=== PATIENT | male | born 1940 | race Caucasian/White ===

== ENCOUNTER 2017-05-23 14:23 | Emergency (ER) | payer MEDICARE ==
[~2017-05-23] VITALS: Ht 177.8 cm; Wt 106.8 kg
[~2017-05-23 14:23] MED LIST: ALLO100T PO; BUPR100T8 PO; CHOL400T32 PO; COU3T PO; EZET10TA26 PO; GABA-532 PO; GLIP10TA11 PO; LABE200T PO; LEVO200T8 PO; RAMI5CAP PO; SITA100T15 PO
[2017-05-23] MEDS ORDERED: ondansetron 4mg rapidly disintigrating tab PO ONE (16:55)
[2017-05-23] MEDS ORDERED: CefTRIAXone 1000mg IM Kit (w/lidocaine diluent) IM ONE (16:55)
[2017-05-23] MEDS ORDERED: tamsulosin 0.4mg capsule PO ONE (16:55)
[2017-05-23] MEDS ORDERED: DOXY100C43 PO (17:48)
[2017-05-23] MEDS ORDERED: CEPH250T PO (17:48)
[2017-05-23] MEDS ORDERED: FLO0.4C PO (17:48)
[2017-05-23] MEDS ORDERED: ONDA8TAB9 PO (17:48)
[2017-05-23 17:50] LABS: CLARITY,URINE CLEAR (Clear); COLOR,URINE YELLOW (Yellow); GLUCOSE, URINE NEGATIVE (Neg); KETONES,URINE NEGATIVE (Neg); LEUKOCYTE ESTERASE ,URINE NEGATIVE (Neg); NITRITES, URINE NEGATIVE (Neg); OCCULT BLOOD,URINE SMALL (Neg); PROTEIN,URINE >=300 mg/dl (Neg); UROBILINOGEN,URINE 0.2 E.U/dL (0.2-1.0)
[2017-05-23 18:07] LABS: UA COLLECTION TYPE FOLEY CATH
[2017-05-23 18:09] LABS: BACTERIA,URINE NONE SEEN /HPF (Neg); SQUAMOUS EPITHELIAL CELL,UR NONE SEEN /LPF (FEW); WBC,URINE 0-4 /HPF (0-4)
[2017-05-23 18:31] VITALS: BP 105/50
== END 2017-05-23 18:47 | disposition home or self-care (01) ==
LOC: ER 14:23
DX: L08.9 Local infection of the skin and subcutaneous tissue, unspecified (principal); R33.9 Retention of urine, unspecified; E11.22 Type 2 diabetes mellitus with diabetic chronic kidney disease; N18.9 Chronic kidney disease, unspecified; E11.42 Type 2 diabetes mellitus with diabetic polyneuropathy; Z79.899 Other long term (current) drug therapy; Z79.01 Long term (current) use of anticoagulants
CPT/HCPCS: 51702; 76870; 81001; 96372; 99285; A4315; J0696

== ENCOUNTER 2017-07-31 14:00 | Inpatient (IN) | payer MEDICARE ==
[2017-07-31] VITALS (7 sets, daily range): BP systolic 113–148; BP diastolic 64–76
[~2017-07-31] VITALS: Ht 604 cm; Wt 101.0 kg
[~2017-07-31 14:00] MED LIST changes: +ONDA8TAB9 PO
[2017-07-31] MEDS ORDERED: normal saline 1000ML IV soln IV ONE (14:20)
[2017-07-31 14:50] LABS: CLARITY,URINE SLIGHTLY CLOUDY (Clear); COLOR,URINE YELLOW (Yellow); GLUCOSE, URINE 100 mg/dl (Neg); KETONES,URINE NEGATIVE (Neg); LEUKOCYTE ESTERASE ,URINE NEGATIVE (Neg); NITRITES, URINE NEGATIVE (Neg); OCCULT BLOOD,URINE LARGE (Neg); PH,URINE 5.5 (4.8-8.0); PROTEIN,URINE 100 mg/dl (Neg); UROBILINOGEN,URINE 0.2 E.U/dL (0.2-1.0)
[2017-07-31 14:53] LABS: UA COLLECTION TYPE STRAIGHT CATH
[2017-07-31 14:56] LABS: AMORPHOUS URATES 2+; BACTERIA,URINE 1+ /HPF (Neg); RBC,URINE 50-100 /HPF (0-2); SQUAMOUS EPITHELIAL CELL,UR NONE SEEN /LPF (FEW)
[2017-07-31 15:07] LABS: BASOPHILS % (AUTO) 0 % (0-1); EOSINOPHILS % (AUTO) 0.1 % (0-6); LYMPHOCYTES # (AUTO) 0.3 X10'3 (1.1-4.8); LYMPHOCYTES % (AUTO) 1.5 % (21-51); MEAN CORPUSCULAR HEMOGLOBIN 30.8 PG (27.0-31.0); MEAN CORPUSCULAR HGB CONC 33.9 % (33.0-36.5); MEAN CORPUSCULAR VOLUME 90.8 FL (78-98); MEAN PLATELET VOLUME 7.9 FL (7.4-10.4); MONOCYTES # (AUTO) 1.1 X10'3 (0-0.9); NEUTROPHILS # (AUTO) 21.4 X10'3 (1.8-7.7); NEUTROPHILS % (AUTO) 93.4 % (42-75); PLATELET COUNT 239 X10'3 (140-440); RED BLOOD COUNT 2.02 X10'6 (4.70-6.10); WHITE BLOOD COUNT 22.9 X10'3 (4.5-11.0)
[2017-07-31 15:10] LABS: HEMOGLOBIN 6.2 g/dl (14.0-17.9)
[2017-07-31 15:11] LABS: HEMATOCRIT 18.3 % (42.0-52.0)
[2017-07-31 15:15] LABS: PROTHROMBIN TIME 49.4 SECONDS (9.0-12.0)
[2017-07-31 15:16] LABS: ALANINE AMINOTRANSFERASE 59 U/L (12-78); ALBUMIN 2.1 G/DL (3.4-5.0); ALBUMIN/GLOBULIN RATIO 0.4 (1.1-1.5); ALKALINE PHOSPHATASE 188 IU/L (46-116); ANION GAP 14 (8-16); ASPARTATE AMINO TRANSFERASE 82 U/L (10-37); BILIRUBIN,TOTAL 0.7 MG/DL (0.1-1.0); BLOOD UREA NITROGEN 112 MG/DL (7-18); BUN/CREATININE RATIO 16.9 (5.4-32.0); CALCIUM 8.1 MG/DL (8.5-10.1); CHLORIDE 83 MMOL/L (99-107); CREATININE 6.63 MG/DL (0.60-1.10); GLUCOSE 222 MG/DL (70-104); POTASSIUM 4.3 MMOL/L (3.5-5.1); TOTAL CARBON DIOXIDE 19.9 MMOL/L (24-32); TOTAL PROTEIN 6.8 G/DL (6.4-8.2); eGFR 8 ML/MIN
[2017-07-31] MEDS ORDERED: pantoprazole 40 MG vial IV ONE (15:20)
[2017-07-31] MEDS ORDERED: CefTRIAXone 2gm/D5W 50ml 50 ML IV ONE (15:20)
[2017-07-31 15:23] LABS: INR 5.1 INR
[2017-07-31 15:24] LABS: SODIUM 117 MMOL/L (135-145)
[2017-07-31] MEDS ORDERED: fentaNYL/PF 50MCG/1 ML 2ML syringe IV ONE (15:30)
[2017-07-31 15:33] LABS: TOTAL CELLS COUNTED 100
[2017-07-31 15:34] LABS: ANISOCYTOSIS 1+; LARGE PLATELETS FEW; PLATELET ESTIMATE NORMAL
[2017-07-31] MEDS ORDERED: mag hydrox/Alum hydrox/simeth 30ml oral suspension PO PRN (16:30)
[2017-07-31] MEDS ORDERED: magnesium Cl slow-release 64mg tablet PO PRN (16:30)
[2017-07-31] MEDS ORDERED: morphine 4 MG/ML inj SYRINge IV PRN ×2 (16:30)
[2017-07-31] MEDS ORDERED: magnesium/D5W IVPB 50 ML IV PRN (16:30)
[2017-07-31] MEDS ORDERED: dextrose 50%-water 50ml dispensing syringe IV PRN ×2 (16:30)
[2017-07-31] MEDS ORDERED: ondansetron/PF 4mg/2ml inj IV PRN (16:30)
[2017-07-31] MEDS ORDERED: HYDROcodone/acetaminophen 10/325mg tab PO PRN (16:30)
[2017-07-31] MEDS ORDERED: potassium Cl 20 mEq SR tablet PO PRN ×2 (16:30)
[2017-07-31] MEDS ORDERED: acetaminophen 325mg tablet PO PRN (16:30)
[2017-07-31] MEDS ORDERED: glucagon, human recombinant 1mg kit SUBCUT PRN (16:30)
[2017-07-31] MEDS ORDERED: MESSAGE TO PHARMACY PO ONE (16:30)
[2017-07-31] MEDS ORDERED: dextrose ORAL solution 15 GM/59 ML bottle PO PRN ×2 (16:30)
[2017-07-31] MEDS ORDERED: potassium Cl 40MEQ/NS 500ml 500 ML IV PRN ×2 (16:30)
[2017-07-31] MEDS ORDERED: magnesium hydroxide 30ml (MOM) UD suspension PO PRN (16:30)
[2017-07-31] MEDS ORDERED: magnesium 4gm in 100ml NS 100 ML IV PRN (16:30)
[2017-07-31 16:56] LABS: % IRON SATURATION 11 % (11-46); IRON 17 UG/DL (53-167); TOTAL IRON BINDING CAPACITY 153 UG/DL (259-388)
[2017-07-31 17:01] LABS: HEMOGLOBIN A1C 7.1 % (4.5-6.2)
[2017-07-31] MEDS ORDERED: CHOL2000 PO (17:06)
[2017-07-31] MEDS ORDERED: GLIP5TAB13 PO (17:08)
[2017-07-31] MEDS ORDERED: SODI650T29 PO (17:13)
[2017-07-31] MEDS: normal saline 1000ml 1,000 ML IV SCH ×2 (17:18→21:04)
[2017-07-31] MEDS ORDERED: furosemide 40mg/4ml inj IV ONE (17:20)
[2017-07-31 17:47] LABS: OCCULT BLOOD STOOL NEGATIVE (Neg)
[2017-07-31] MEDS: insulin glargine (Lantus) pen - multi-dose SQ SCH (21:29)
[2017-07-31] MEDS: piperacillin-tazo 2.25gm/50ml 50 ML IV SCH (21:30)
[2017-08-01 05:00] VITALS: BP_SYST 106; BP_SYST 114; BP_DIAS 56; BP_DIAS 60
[2017-08-01 05:53] LABS: BASOPHILS % (AUTO) 0 % (0-1); EOSINOPHILS % (AUTO) 0 % (0-6); HEMOGLOBIN 7.1 g/dl (14.0-17.9); LYMPHOCYTES # (AUTO) 0.5 X10'3 (1.1-4.8); LYMPHOCYTES % (AUTO) 2.3 % (21-51); MEAN CORPUSCULAR HEMOGLOBIN 30.7 PG (27.0-31.0); MEAN CORPUSCULAR HGB CONC 34.9 % (33.0-36.5); MEAN PLATELET VOLUME 8.1 FL (7.4-10.4); MONOCYTES # (AUTO) 1.1 X10'3 (0-0.9); NEUTROPHILS # (AUTO) 19.8 X10'3 (1.8-7.7); NEUTROPHILS % (AUTO) 92.7 % (42-75); PLATELET COUNT 240 X10'3 (140-440); RED BLOOD COUNT 2.33 X10'6 (4.70-6.10); RED CELL DISTRIBUTION WIDTH 15.8 % (11.5-14.5); WHITE BLOOD COUNT 21.3 X10'3 (4.5-11.0)
[2017-08-01 06:01] LABS: ALBUMIN 1.9 G/DL (3.4-5.0); ANION GAP 18 (8-16); BLOOD UREA NITROGEN 108 MG/DL (7-18); BUN/CREATININE RATIO 16.5 (5.4-32.0); CALCIUM 7.7 MG/DL (8.5-10.1); CHLORIDE 86 MMOL/L (99-107); CREATININE 6.55 MG/DL (0.60-1.10); GLUCOSE 146 MG/DL (70-104); POTASSIUM 4.3 MMOL/L (3.5-5.1); TOTAL CARBON DIOXIDE 16.1 MMOL/L (24-32); eGFR 8 ML/MIN
[2017-08-01 06:17] LABS: HEMATOCRIT 20.5 % (42.0-52.0)
[2017-08-01 06:41] LABS: SODIUM 120 MMOL/L (135-145)
[2017-08-01] MEDS: K and/or MAG REPLACEMENT MC SCH (08:00)
[2017-08-01] MEDS: piperacillin-tazo 2.25gm/50ml 50 ML IV SCH ×2 (09:28→19:07)
[2017-08-01] MEDS: insulin Lispro (HumaLOG) vial - multi-dose SQ SCH ×3 (09:31→19:47)
[2017-08-01] MEDS: acetaminophen 325mg tablet PO PRN (09:33)
[2017-08-01 10:00] VITALS: BP 114/56
[2017-08-01 10:14] LABS: ANISOCYTOSIS 1+; PLATELET ESTIMATE NORMAL; TOTAL CELLS COUNTED 100
[2017-08-01 10:16] LABS: TOXIC GRANULATION 1+
[2017-08-01 10:17] LABS: BURR CELLS FEW; POLYCHROMASIA FEW; SCHISTOCYTES FEW
[2017-08-01] MEDS: sodium bicarbonate 650mg tablet PO SCH ×2 (14:36→19:08)
[2017-08-01] MEDS: normal saline 1000ml 1,000 ML IV SCH (19:07)
[2017-08-01] MEDS: lactobacillus rhamnosus 10,000 MMU CELLS/CAPSULE PO SCH (19:08)
[2017-08-01] MEDS: insulin glargine (Lantus) pen - multi-dose SQ SCH (21:20)
[2017-08-01 22:00] VITALS: BP 104/58
[2017-08-02] MEDS: HYDROcodone/acetaminophen 5mg/325mg tablet PO PRN ×2 (05:09→11:29)
[2017-08-02 06:15] VITALS: BP 124/63
[2017-08-02 07:18] LABS: BASOPHILS % (AUTO) 0 % (0-1); EOSINOPHILS # (AUTO) 0.2 X10'3 (0-0.9); EOSINOPHILS % (AUTO) 1.2 % (0-6); HEMOGLOBIN 7.2 g/dl (14.0-17.9); LYMPHOCYTES # (AUTO) 0.4 X10'3 (1.1-4.8); LYMPHOCYTES % (AUTO) 1.8 % (21-51); MEAN CORPUSCULAR HEMOGLOBIN 30.2 PG (27.0-31.0); MEAN CORPUSCULAR HGB CONC 33.3 % (33.0-36.5); MEAN CORPUSCULAR VOLUME 90.8 FL (78-98); MEAN PLATELET VOLUME 8.4 FL (7.4-10.4); MONOCYTES # (AUTO) 0.9 X10'3 (0-0.9); MONOCYTES % (AUTO) 4.7 % (2-12); NEUTROPHILS # (AUTO) 18.5 X10'3 (1.8-7.7); NEUTROPHILS % (AUTO) 92.3 % (42-75); PLATELET COUNT 253 X10'3 (140-440); RED BLOOD COUNT 2.39 X10'6 (4.70-6.10); RED CELL DISTRIBUTION WIDTH 14.9 % (11.5-14.5)
[2017-08-02 07:32] LABS: HEMATOCRIT 21.7 % (42.0-52.0)
[2017-08-02 07:35] LABS: ALBUMIN 1.6 G/DL (3.4-5.0); ANION GAP 18 (8-16); BLOOD UREA NITROGEN 117 MG/DL (7-18); BUN/CREATININE RATIO 17.1 (5.4-32.0); CALCIUM 7.7 MG/DL (8.5-10.1); CHLORIDE 90 MMOL/L (99-107); CREATININE 6.86 MG/DL (0.60-1.10); GLUCOSE 71 MG/DL (70-104); MAGNESIUM 2.2 MG/DL (1.5-2.4); POTASSIUM 4.2 MMOL/L (3.5-5.1); SODIUM 124 MMOL/L (135-145); TOTAL CARBON DIOXIDE 16.5 MMOL/L (24-32); eGFR 8 ML/MIN
[2017-08-02] MEDS: K and/or MAG REPLACEMENT MC SCH (08:00)
[2017-08-02] MEDS ORDERED: epoetin 20,000 units/ml inj SQ ONE (08:15)
[2017-08-02] MEDS: insulin Lispro (HumaLOG) vial - multi-dose SQ SCH ×3 (09:31→19:39)
[2017-08-02] MEDS: lactobacillus rhamnosus 10,000 MMU CELLS/CAPSULE PO SCH ×2 (09:33→19:39)
[2017-08-02] MEDS: sodium bicarbonate 650mg tablet PO SCH (09:33)
[2017-08-02] MEDS: piperacillin-tazo 2.25gm/50ml 50 ML IV SCH ×2 (09:33→19:40)
[2017-08-02 10:00] VITALS: BP 92/48
[2017-08-02] MEDS: normal saline 1000ml 1,000 ML IV SCH (11:47)
[2017-08-02] MEDS ORDERED: morphine 2 MG/ML inj. syringe IV PRN (17:05)
[2017-08-02] MEDS: insulin glargine (Lantus) pen - multi-dose SQ SCH (21:01)
[2017-08-02 22:00] VITALS: BP 90/54
[2017-08-03 06:00] VITALS: BP 103/56
[2017-08-03 06:10] LABS: BASOPHILS % (AUTO) 0 % (0-1); EOSINOPHILS # (AUTO) 0.7 X10'3 (0-0.9); EOSINOPHILS % (AUTO) 4.3 % (0-6); LYMPHOCYTES # (AUTO) 0.6 X10'3 (1.1-4.8); LYMPHOCYTES % (AUTO) 3.4 % (21-51); MEAN CORPUSCULAR HEMOGLOBIN 30.6 PG (27.0-31.0); MEAN CORPUSCULAR HGB CONC 34.1 % (33.0-36.5); MEAN CORPUSCULAR VOLUME 89.8 FL (78-98); MEAN PLATELET VOLUME 7.9 FL (7.4-10.4); MONOCYTES # (AUTO) 0.9 X10'3 (0-0.9); MONOCYTES % (AUTO) 5.2 % (2-12); NEUTROPHILS % (AUTO) 87.1 % (42-75); PLATELET COUNT 258 X10'3 (140-440); RED BLOOD COUNT 2.27 X10'6 (4.70-6.10); RED CELL DISTRIBUTION WIDTH 16.1 % (11.5-14.5); WHITE BLOOD COUNT 17.2 X10'3 (4.5-11.0)
[2017-08-03 06:21] LABS: ALBUMIN 1.5 G/DL (3.4-5.0); ANION GAP 16 (8-16); BLOOD UREA NITROGEN 130 MG/DL (7-18); BUN/CREATININE RATIO 17.1 (5.4-32.0); CALCIUM 7.5 MG/DL (8.5-10.1); CHLORIDE 91 MMOL/L (99-107); CREATININE 7.62 MG/DL (0.60-1.10); GLUCOSE 55 MG/DL (70-104); MAGNESIUM 2.3 MG/DL (1.5-2.4); POTASSIUM 4.2 MMOL/L (3.5-5.1); SODIUM 125 MMOL/L (135-145); TOTAL CARBON DIOXIDE 17.9 MMOL/L (24-32); eGFR 7 ML/MIN
[2017-08-03 06:55] LABS: HEMATOCRIT 20.4 % (42.0-52.0)
[2017-08-03 10:00] VITALS: BP 102/61
[2017-08-03] MEDS: K and/or MAG REPLACEMENT MC SCH (10:00)
[2017-08-03] MEDS: piperacillin-tazo 2.25gm/50ml 50 ML IV SCH ×2 (10:05→19:05)
[2017-08-03] MEDS: lactobacillus rhamnosus 10,000 MMU CELLS/CAPSULE PO SCH ×2 (10:05→19:03)
[2017-08-03] MEDS ORDERED: benzocaine/menthol oral lozeng 1 EACH BOX MM PRN (17:35)
[2017-08-03 18:00] VITALS: BP 130/61
[2017-08-03] MEDS: insulin Lispro (HumaLOG) vial - multi-dose SQ SCH (19:05)
[2017-08-03] MEDS: insulin glargine (Lantus) pen - multi-dose SQ SCH (20:51)
[2017-08-03 22:00] VITALS: BP 113/56
[2017-08-04 05:55] LABS: BASOPHILS % (AUTO) 0 % (0-1); EOSINOPHILS % (AUTO) 5.7 % (0-6); HEMATOCRIT 22.2 % (42.0-52.0); HEMOGLOBIN 7.4 g/dl (14.0-17.9); LYMPHOCYTES # (AUTO) 0.6 X10'3 (1.1-4.8); LYMPHOCYTES % (AUTO) 3.2 % (21-51); MEAN CORPUSCULAR HEMOGLOBIN 30.2 PG (27.0-31.0); MEAN CORPUSCULAR HGB CONC 33.4 % (33.0-36.5); MEAN CORPUSCULAR VOLUME 90.5 FL (78-98); MEAN PLATELET VOLUME 7.5 FL (7.4-10.4); MONOCYTES # (AUTO) 0.7 X10'3 (0-0.9); NEUTROPHILS # (AUTO) 15.3 X10'3 (1.8-7.7); NEUTROPHILS % (AUTO) 87.1 % (42-75); PLATELET COUNT 331 X10'3 (140-440); RED BLOOD COUNT 2.46 X10'6 (4.70-6.10); RED CELL DISTRIBUTION WIDTH 16.5 % (11.5-14.5); WHITE BLOOD COUNT 17.5 X10'3 (4.5-11.0)
[2017-08-04 06:00] VITALS: BP 117/57
[2017-08-04 06:11] LABS: ALBUMIN 1.5 G/DL (3.4-5.0); ANION GAP 18 (8-16); BLOOD UREA NITROGEN 138 MG/DL (7-18); BUN/CREATININE RATIO 17.9 (5.4-32.0); CALCIUM 7.6 MG/DL (8.5-10.1); CHLORIDE 91 MMOL/L (99-107); CREATININE 7.72 MG/DL (0.60-1.10); GLUCOSE 172 MG/DL (70-104); MAGNESIUM 2.4 MG/DL (1.5-2.4); POTASSIUM 4.9 MMOL/L (3.5-5.1); SODIUM 127 MMOL/L (135-145); TOTAL CARBON DIOXIDE 17.6 MMOL/L (24-32); eGFR 7 ML/MIN
[2017-08-04] MEDS: K and/or MAG REPLACEMENT MC SCH (08:00)
[2017-08-04] MEDS: piperacillin-tazo 2.25gm/50ml 50 ML IV SCH ×2 (08:24→20:14)
[2017-08-04] MEDS: acetaminophen 325mg tablet PO PRN (08:24)
[2017-08-04] MEDS: lactobacillus rhamnosus 10,000 MMU CELLS/CAPSULE PO SCH ×2 (08:24→20:14)
[2017-08-04] MEDS: insulin Lispro (HumaLOG) vial - multi-dose SQ SCH ×2 (08:38→21:44)
[2017-08-04 10:00] VITALS: BP 128/56
[2017-08-04] MEDS: HYDROcodone/acetaminophen 5mg/325mg tablet PO PRN (13:57)
[2017-08-04 18:00] VITALS: BP 114/62
[2017-08-04] MEDS: insulin glargine (Lantus) pen - multi-dose SQ SCH (21:42)
[2017-08-04 22:00] VITALS: BP 122/60
[2017-08-05 05:47] LABS: BASOPHILS % (AUTO) 0.2 % (0-1); EOSINOPHILS # (AUTO) 1.3 X10'3 (0-0.9); HEMATOCRIT 23.1 % (42.0-52.0); HEMOGLOBIN 7.7 g/dl (14.0-17.9); LYMPHOCYTES # (AUTO) 0.7 X10'3 (1.1-4.8); LYMPHOCYTES % (AUTO) 3.8 % (21-51); MEAN CORPUSCULAR HEMOGLOBIN 30.5 PG (27.0-31.0); MEAN CORPUSCULAR HGB CONC 33.5 % (33.0-36.5); MEAN CORPUSCULAR VOLUME 91.1 FL (78-98); MEAN PLATELET VOLUME 7.5 FL (7.4-10.4); MONOCYTES # (AUTO) 0.8 X10'3 (0-0.9); MONOCYTES % (AUTO) 4.2 % (2-12); NEUTROPHILS # (AUTO) 15.5 X10'3 (1.8-7.7); NEUTROPHILS % (AUTO) 84.8 % (42-75); PLATELET COUNT 378 X10'3 (140-440); RED BLOOD COUNT 2.53 X10'6 (4.70-6.10); RED CELL DISTRIBUTION WIDTH 16.4 % (11.5-14.5); WHITE BLOOD COUNT 18.2 X10'3 (4.5-11.0)
[2017-08-05 05:57] LABS: ALBUMIN 1.5 G/DL (3.4-5.0); ANION GAP 17 (8-16); BLOOD UREA NITROGEN 149 MG/DL (7-18); BUN/CREATININE RATIO 18.9 (5.4-32.0); CALCIUM 8.4 MG/DL (8.5-10.1); CHLORIDE 94 MMOL/L (99-107); CREATININE 7.88 MG/DL (0.60-1.10); GLUCOSE 196 MG/DL (70-104); MAGNESIUM 2.7 MG/DL (1.5-2.4); POTASSIUM 4.6 MMOL/L (3.5-5.1); SODIUM 128 MMOL/L (135-145); TOTAL CARBON DIOXIDE 17.5 MMOL/L (24-32); eGFR 7 ML/MIN
[2017-08-05 06:00] VITALS: BP 136/69
[2017-08-05] MEDS: K and/or MAG REPLACEMENT MC SCH (08:00)
[2017-08-05] MEDS: lactobacillus rhamnosus 10,000 MMU CELLS/CAPSULE PO SCH (08:38)
[2017-08-05] MEDS: piperacillin-tazo 2.25gm/50ml 50 ML IV SCH (08:38)
[2017-08-05] MEDS: insulin Lispro (HumaLOG) vial - multi-dose SQ SCH (08:39)
[2017-08-05] MEDS: HYDROcodone/acetaminophen 5mg/325mg tablet PO PRN (09:36)
[2017-08-05 12:06] VITALS: BP 140/68
== END 2017-08-05 17:00 | DRG 871 ==
LOC: ER 14:00 → ED HOLD 16:28 → ORTHO 4S 20:30
PROVIDERS: ADMIT Internal Medicine; ATTEND Family Medicine
PROC: 30233N1 Transfusion of Nonautologous Red Blood Cells into Peripheral Vein, Percutaneous Approach (ICD-10-PCS; principal; 2017-07-31)
DX: A41.9 Sepsis, unspecified organism (principal); N18.6 End stage renal disease; L03.116 Cellulitis of left lower limb; N39.0 Urinary tract infection, site not specified; L03.115 Cellulitis of right lower limb; E87.1 Hypo-osmolality and hyponatremia; I12.0 Hypertensive chronic kidney disease with stage 5 chronic kidney disease or end stage renal disease; N17.9 Acute kidney failure, unspecified; D63.8 Anemia in other chronic diseases classified elsewhere; E03.9 Hypothyroidism, unspecified; R33.9 Retention of urine, unspecified; E11.22 Type 2 diabetes mellitus with diabetic chronic kidney disease; Z51.5 Encounter for palliative care; E11.42 Type 2 diabetes mellitus with diabetic polyneuropathy; G89.4 Chronic pain syndrome; I25.10 Atherosclerotic heart disease of native coronary artery without angina pectoris; Z53.29 Procedure and treatment not carried out because of patient's decision for other reasons; I25.2 Old myocardial infarction; Z79.899 Other long term (current) drug therapy; Z79.01 Long term (current) use of anticoagulants; Z79.84 Long term (current) use of oral hypoglycemic drugs
CPT/HCPCS: 36415; 71045; 80048; 80053; 81001; 82272; 82948; 83036; 83540; 83550; 83605; 83735; 84145; 84443; 85025; 85610; 86885; 86900; 86901; 86920; 87040; 87070; 87088; 93005; 96365; 96375; 97110; 97116; 97162; 97530; 99285; A4315; A4353; A6209; A6212; A6213; A6253; A6446; A6449; C9113; J0696; J0885; J1815; J1940; J2270; J2543; J3010; J7030; P9016

== ENCOUNTER 2017-08-29 11:25 | Inpatient (IN) | payer MEDICARE ==
[~2017-08-29] VITALS: Ht 177.8 cm; Wt 101.0 kg
[~2017-08-29 11:25] MED LIST changes: +CHOL2000 PO; -CHOL400T32 PO; -GLIP10TA11 PO; +GLIP5TAB13 PO; -ONDA8TAB9 PO; +SODI650T29 PO
[2017-08-29 13:14] LABS: BASOPHILS % (AUTO) 0 % (0-1); EOSINOPHILS # (AUTO) 0.4 X10'3 (0-0.9); EOSINOPHILS % (AUTO) 1.9 % (0-6); HEMATOCRIT 28.1 % (42.0-52.0); HEMOGLOBIN 9.3 g/dl (14.0-17.9); LYMPHOCYTES # (AUTO) 1.1 X10'3 (1.1-4.8); LYMPHOCYTES % (AUTO) 5.5 % (21-51); MEAN CORPUSCULAR HEMOGLOBIN 29.3 PG (27.0-31.0); MEAN CORPUSCULAR VOLUME 88.8 FL (78-98); MEAN PLATELET VOLUME 9.2 FL (7.4-10.4); MONOCYTES # (AUTO) 0.9 X10'3 (0-0.9); MONOCYTES % (AUTO) 4.6 % (2-12); NEUTROPHILS # (AUTO) 17.6 X10'3 (1.8-7.7); PLATELET COUNT 129 X10'3 (140-440); RED BLOOD COUNT 3.16 X10'6 (4.70-6.10); RED CELL DISTRIBUTION WIDTH 17.1 % (11.5-14.5)
[2017-08-29 13:15] LABS: CLARITY,URINE CLEAR (Clear); COLOR,URINE YELLOW (Yellow); GLUCOSE, URINE 100 mg/dl (Neg); KETONES,URINE NEGATIVE (Neg); LEUKOCYTE ESTERASE ,URINE NEGATIVE (Neg); NITRITES, URINE NEGATIVE (Neg); OCCULT BLOOD,URINE LARGE (Neg); PROTEIN,URINE 100 mg/dl (Neg); UROBILINOGEN,URINE 0.2 E.U/dL (0.2-1.0)
[2017-08-29 13:20] LABS: UA COLLECTION TYPE FOLEY CATH
[2017-08-29 13:24] LABS: INR 3.4 INR; PARTIAL THROMBOPLASTIN TIME 47 SECONDS (22-32); PROTHROMBIN TIME 33.5 SECONDS (9.0-12.0)
[2017-08-29 13:30] LABS: ALANINE AMINOTRANSFERASE 46 U/L (12-78); ALBUMIN 1.5 G/DL (3.4-5.0); ALBUMIN/GLOBULIN RATIO 0.3 (1.1-1.5); ALKALINE PHOSPHATASE 181 IU/L (46-116); ANION GAP 10 (8-16); ASPARTATE AMINO TRANSFERASE 37 U/L (10-37); BILIRUBIN,TOTAL 0.4 MG/DL (0.1-1.0); BLOOD UREA NITROGEN 80 MG/DL (7-18); BUN/CREATININE RATIO 15.4 (5.4-32.0); CALCIUM 7.6 MG/DL (8.5-10.1); CHLORIDE 87 MMOL/L (99-107); CREATININE 5.21 MG/DL (0.60-1.10); GLUCOSE 266 MG/DL (70-104); POTASSIUM 3.5 MMOL/L (3.5-5.1); SODIUM 127 MMOL/L (135-145); TOTAL CARBON DIOXIDE 30.2 MMOL/L (24-32); TOTAL PROTEIN 6.4 G/DL (6.4-8.2); eGFR 11 ML/MIN
[2017-08-29 13:40] LABS: BACTERIA,URINE 2+ /HPF (Neg); SQUAMOUS EPITHELIAL CELL,UR FEW /LPF (FEW)
[2017-08-29 14:00] LABS: ANISOCYTOSIS 1+; PLATELET ESTIMATE DECREASED; TOTAL CELLS COUNTED 100
[2017-08-29] MEDS ORDERED: CefTRIAXone 2gm/D5W 50ml 50 ML IV ONE (14:05)
[2017-08-29] MEDS ORDERED: cefTAZidime inj 2 GM in normal saline 100ml IV soln 100 ML IV STA (14:40)
[2017-08-29] MEDS ORDERED: ondansetron/PF 4mg/2ml inj IV PRN (15:00)
[2017-08-29] MEDS ORDERED: diphenhydrAMINE 25mg capsule PO PRN (15:00)
[2017-08-29] MEDS ORDERED: HYDROmorphone 1 mg/ml syringe IV PRN (15:00)
[2017-08-29] MEDS ORDERED: HYDROcodone/acetaminophen 5mg/325mg tablet PO PRN (15:00)
[2017-08-29] MEDS ORDERED: acetaminophen 325mg tablet PO PRN (15:00)
[2017-08-29] MEDS ORDERED: bisacodyl 10mg suppository rectal RC PRN (15:00)
[2017-08-29] MEDS ORDERED: dextrose 50%-water 50ml dispensing syringe IV PRN ×2 (15:05)
[2017-08-29] MEDS ORDERED: dextrose ORAL solution 15 GM/59 ML bottle PO PRN ×2 (15:05)
[2017-08-29] MEDS ORDERED: MESSAGE TO PHARMACY PO ONE (15:05)
[2017-08-29] MEDS ORDERED: glucagon, human recombinant 1mg kit SUBCUT PRN (15:05)
[2017-08-29 15:37] LABS: VANCOMYCIN,RANDOM 4.9 UG/ML
[2017-08-29 15:55] VITALS: BP 104/64
[2017-08-29 18:00] VITALS: BP 111/66
[2017-08-29] MEDS: docusate sod 100mg capsule PO SCH (20:20)
[2017-08-29] MEDS: insulin Lispro (HumaLOG) vial - multi-dose SQ SCH (20:23)
[2017-08-29] MEDS ORDERED: temazepam 15mg capsule PO PRN (21:00)
[2017-08-29] MEDS: insulin glargine (Lantus) pen - multi-dose SQ SCH (21:59)
[2017-08-29 22:00] VITALS: BP 115/59
[2017-08-30] VITALS (11 sets, daily range): BP systolic 100–143; BP diastolic 63–80
[2017-08-30 06:07] LABS: BASOPHILS % (AUTO) 0 % (0-1); EOSINOPHILS # (AUTO) 0.6 X10'3 (0-0.9); EOSINOPHILS % (AUTO) 3.4 % (0-6); HEMATOCRIT 27.1 % (42.0-52.0); HEMOGLOBIN 8.8 g/dl (14.0-17.9); LYMPHOCYTES # (AUTO) 0.7 X10'3 (1.1-4.8); LYMPHOCYTES % (AUTO) 3.8 % (21-51); MEAN CORPUSCULAR HGB CONC 32.7 % (33.0-36.5); MEAN CORPUSCULAR VOLUME 88.7 FL (78-98); MEAN PLATELET VOLUME 8.9 FL (7.4-10.4); MONOCYTES # (AUTO) 0.8 X10'3 (0-0.9); MONOCYTES % (AUTO) 4.3 % (2-12); NEUTROPHILS # (AUTO) 16.7 X10'3 (1.8-7.7); NEUTROPHILS % (AUTO) 88.5 % (42-75); PLATELET COUNT 143 X10'3 (140-440); RED BLOOD COUNT 3.05 X10'6 (4.70-6.10); WHITE BLOOD COUNT 18.9 X10'3 (4.5-11.0)
[2017-08-30 06:27] LABS: ALBUMIN 1.5 G/DL (3.4-5.0); ANION GAP 12 (8-16); BLOOD UREA NITROGEN 88 MG/DL (7-18); BUN/CREATININE RATIO 15.1 (5.4-32.0); CALCIUM 7.4 MG/DL (8.5-10.1); CHLORIDE 89 MMOL/L (99-107); CREATININE 5.82 MG/DL (0.60-1.10); GLUCOSE 168 MG/DL (70-104); MAGNESIUM 1.8 MG/DL (1.5-2.4); PHOSPHORUS 6.4 MG/DL (2.3-4.5); POTASSIUM 3.6 MMOL/L (3.5-5.1); SODIUM 128 MMOL/L (135-145); TOTAL CARBON DIOXIDE 27.1 MMOL/L (24-32); eGFR 10 ML/MIN
[2017-08-30 06:39] LABS: ANISOCYTOSIS 1+; PLATELET ESTIMATE NORMAL; POLYCHROMASIA FEW; TOTAL CELLS COUNTED 100
[2017-08-30] MEDS ORDERED: vancomycin/NS 1 GM ADD-VANTAGE 250 ML IV ONE (07:10)
[2017-08-30] MEDS: docusate sod 100mg capsule PO SCH ×2 (07:41→22:30)
[2017-08-30] MEDS ORDERED: heparin 1,000 units/ml 10ml inj IV ONE (08:00)
[2017-08-30] MEDS ORDERED: heparin 1,000unit/ml 10ml vial 10 ML IV ONE (08:00)
[2017-08-30] MEDS ORDERED: albumin (human) 25% 100ml IV 100 ML IV PRN (08:00)
[2017-08-30] MEDS ORDERED: heparin 1,000 units/ml 10ml inj HE ONE ×2 (08:00)
[2017-08-30 09:12] LABS: INR 3.8 INR; PROTHROMBIN TIME 37.5 SECONDS (9.0-12.0)
[2017-08-30] MEDS ORDERED: fentaNYL/PF 50MCG/1 ML 2ML syringe IV PRN (10:05)
[2017-08-30] MEDS ORDERED: heparin 1,000 units/ml 10ml inj ICATH ONE (10:05)
[2017-08-30] MEDS ORDERED: midazolam 2 mg/2 ml injection IV PRN (10:05)
[2017-08-30] MEDS: insulin Lispro (HumaLOG) vial - multi-dose SQ SCH ×3 (10:07→21:05)
[2017-08-30] MEDS ORDERED: normal saline 1000ml 1,000 ML IV SCH (10:10)
[2017-08-30] MEDS ORDERED: fentaNYL/PF 50MCG/1 ML 2ML syringe ONE (10:31)
[2017-08-30] MEDS ORDERED: heparin 1,000unit/ml 10ml vial 10 ML ONE (10:31)
[2017-08-30] MEDS ORDERED: midazolam 2 mg/2 ml injection ONE (10:31)
[2017-08-30] MEDS ORDERED: vancomycin/NS 1 GM ADD-VANTAGE 250 ML X 1 DOSE IV PRN (10:55)
[2017-08-30] MEDS ORDERED: LIDOcaine 1%/PF 5ML 10 MG/ML VIAL ONE (11:02)
[2017-08-30] MEDS: glipizide 5mg tablet PO SCH ×2 (13:00→22:29)
[2017-08-30] MEDS ORDERED: warfarin 3mg tablet PO SCH (21:00)
[2017-08-30] MEDS: labetalol 100mg tablet PO SCH (22:29)
[2017-08-30] MEDS: sodium bicarbonate 650mg tablet PO SCH (22:31)
[2017-08-30] MEDS: insulin glargine (Lantus) pen - multi-dose SQ SCH (22:37)
[2017-08-31] MEDS ORDERED: VANCOMYCIN LEVEL IV SCH ×2 (03:00→04:00)
[2017-08-31 05:45] LABS: BASOPHILS % (AUTO) 0.1 % (0-1); EOSINOPHILS # (AUTO) 0.6 X10'3 (0-0.9); EOSINOPHILS % (AUTO) 3.3 % (0-6); HEMOGLOBIN 9.2 g/dl (14.0-17.9); LYMPHOCYTES % (AUTO) 5.4 % (21-51); MEAN CORPUSCULAR HGB CONC 32.9 % (33.0-36.5); MEAN CORPUSCULAR VOLUME 88.2 FL (78-98); MEAN PLATELET VOLUME 9.2 FL (7.4-10.4); MONOCYTES # (AUTO) 0.8 X10'3 (0-0.9); MONOCYTES % (AUTO) 4.3 % (2-12); NEUTROPHILS # (AUTO) 15.8 X10'3 (1.8-7.7); NEUTROPHILS % (AUTO) 86.9 % (42-75); PLATELET COUNT 128 X10'3 (140-440); RED BLOOD COUNT 3.18 X10'6 (4.70-6.10); RED CELL DISTRIBUTION WIDTH 16.9 % (11.5-14.5); WHITE BLOOD COUNT 18.1 X10'3 (4.5-11.0)
[2017-08-31 06:00] VITALS: BP 127/77
[2017-08-31 06:06] LABS: PROTHROMBIN TIME 40.2 SECONDS (9.0-12.0)
[2017-08-31 06:17] LABS: INR 4.1 INR
[2017-08-31 06:18] LABS: ALBUMIN 1.5 G/DL (3.4-5.0); ANION GAP 11 (8-16); BLOOD UREA NITROGEN 56 MG/DL (7-18); BUN/CREATININE RATIO 13.9 (5.4-32.0); CALCIUM 7.8 MG/DL (8.5-10.1); CHLORIDE 95 MMOL/L (99-107); CREATININE 4.02 MG/DL (0.60-1.10); GLUCOSE 159 MG/DL (70-104); MAGNESIUM 1.9 MG/DL (1.5-2.4); PHOSPHORUS 5.2 MG/DL (2.3-4.5); POTASSIUM 3.6 MMOL/L (3.5-5.1); SODIUM 133 MMOL/L (135-145); TOTAL CARBON DIOXIDE 26.7 MMOL/L (24-32); eGFR 15 ML/MIN
[2017-08-31] MEDS: levoTHYROXINE 100mcg tablet PO SCH (07:20)
[2017-08-31] MEDS: docusate sod 100mg capsule PO SCH ×2 (08:00→20:45)
[2017-08-31 10:00] VITALS: BP 131/76
[2017-08-31] MEDS: glipizide 5mg tablet PO SCH ×2 (10:07→13:32)
[2017-08-31] MEDS: gabapentin 300mg capsule PO SCH (10:08)
[2017-08-31] MEDS: labetalol 100mg tablet PO SCH ×2 (10:08→20:45)
[2017-08-31] MEDS: sodium bicarbonate 650mg tablet PO SCH ×2 (10:08→20:45)
[2017-08-31] MEDS: lisinopril 20mg tablet PO SCH (10:09)
[2017-08-31] MEDS: ezetimibe 10mg tablet PO SCH (10:09)
[2017-08-31] MEDS: buPROPion SR 100mg tab PO SCH (10:09)
[2017-08-31] MEDS: allopurinol 100mg tablet PO SCH (10:10)
[2017-08-31] MEDS: vitamin D (cholecalciferol) 1,000 unit tablet PO SCH (10:10)
[2017-08-31] MEDS: polyethylene glycol 3350 17gm powd pack PO SCH ×2 (13:31→20:44)
[2017-08-31] MEDS: insulin glargine (Lantus) pen - multi-dose SQ SCH (20:48)
[2017-08-31 22:00] VITALS: BP 108/65
[2017-09-01 06:12] LABS: BASOPHILS % (AUTO) 0.4 % (0-1); EOSINOPHILS # (AUTO) 0.5 X10'3 (0-0.9); EOSINOPHILS % (AUTO) 3.7 % (0-6); HEMATOCRIT 25.5 % (42.0-52.0); HEMOGLOBIN 8.6 g/dl (14.0-17.9); LYMPHOCYTES # (AUTO) 1.2 X10'3 (1.1-4.8); LYMPHOCYTES % (AUTO) 8.7 % (21-51); MEAN CORPUSCULAR HEMOGLOBIN 29.2 PG (27.0-31.0); MEAN CORPUSCULAR HGB CONC 33.6 % (33.0-36.5); MEAN CORPUSCULAR VOLUME 86.9 FL (78-98); MEAN PLATELET VOLUME 8.6 FL (7.4-10.4); MONOCYTES # (AUTO) 0.7 X10'3 (0-0.9); MONOCYTES % (AUTO) 5.1 % (2-12); NEUTROPHILS # (AUTO) 10.9 X10'3 (1.8-7.7); NEUTROPHILS % (AUTO) 82.1 % (42-75); PLATELET COUNT 117 X10'3 (140-440); RED BLOOD COUNT 2.94 X10'6 (4.70-6.10); RED CELL DISTRIBUTION WIDTH 16.8 % (11.5-14.5); WHITE BLOOD COUNT 13.3 X10'3 (4.5-11.0)
[2017-09-01 06:25] LABS: ALBUMIN 1.4 G/DL (3.4-5.0); ANION GAP 9 (8-16); BLOOD UREA NITROGEN 75 MG/DL (7-18); BUN/CREATININE RATIO 15.2 (5.4-32.0); CALCIUM 7.6 MG/DL (8.5-10.1); CHLORIDE 95 MMOL/L (99-107); CREATININE 4.93 MG/DL (0.60-1.10); GLUCOSE 179 MG/DL (70-104); MAGNESIUM 1.9 MG/DL (1.5-2.4); PHOSPHORUS 7.2 MG/DL (2.3-4.5); SODIUM 130 MMOL/L (135-145); eGFR 12 ML/MIN
[2017-09-01 06:31] LABS: PROTHROMBIN TIME 46.3 SECONDS (9.0-12.0)
[2017-09-01 06:39] LABS: INR 4.7 INR
[2017-09-01] MEDS: labetalol 100mg tablet PO SCH (08:40)
[2017-09-01] MEDS: lisinopril 20mg tablet PO SCH (08:40)
[2017-09-01] MEDS: sodium bicarbonate 650mg tablet PO SCH (08:41)
[2017-09-01] MEDS: ezetimibe 10mg tablet PO SCH (08:41)
[2017-09-01] MEDS: levoTHYROXINE 100mcg tablet PO SCH (08:41)
[2017-09-01] MEDS: docusate sod 100mg capsule PO SCH ×2 (08:42→19:46)
[2017-09-01] MEDS: allopurinol 100mg tablet PO SCH (08:42)
[2017-09-01] MEDS: gabapentin 300mg capsule PO SCH (08:42)
[2017-09-01] MEDS: buPROPion SR 100mg tab PO SCH (08:42)
[2017-09-01] MEDS: vitamin D (cholecalciferol) 1,000 unit tablet PO SCH (08:43)
[2017-09-01 10:00] VITALS: BP 96/55
[2017-09-01] MEDS: polyethylene glycol 3350 17gm powd pack PO SCH (19:53)
[2017-09-01 22:00] VITALS: BP 106/61
[2017-09-02 06:05] LABS: BASOPHILS % (AUTO) 0.2 % (0-1); EOSINOPHILS # (AUTO) 0.6 X10'3 (0-0.9); EOSINOPHILS % (AUTO) 5.2 % (0-6); HEMATOCRIT 27.1 % (42.0-52.0); HEMOGLOBIN 8.8 g/dl (14.0-17.9); LYMPHOCYTES % (AUTO) 8.3 % (21-51); MEAN CORPUSCULAR HEMOGLOBIN 28.7 PG (27.0-31.0); MEAN CORPUSCULAR HGB CONC 32.5 % (33.0-36.5); MEAN CORPUSCULAR VOLUME 88.3 FL (78-98); MONOCYTES # (AUTO) 0.6 X10'3 (0-0.9); MONOCYTES % (AUTO) 5.3 % (2-12); NEUTROPHILS # (AUTO) 9.9 X10'3 (1.8-7.7); PLATELET COUNT 146 X10'3 (140-440); RED BLOOD COUNT 3.07 X10'6 (4.70-6.10); WHITE BLOOD COUNT 12.2 X10'3 (4.5-11.0)
[2017-09-02 06:23] LABS: PROTHROMBIN TIME 42.1 SECONDS (9.0-12.0)
[2017-09-02 06:34] LABS: ALBUMIN 1.6 G/DL (3.4-5.0); ANION GAP 10 (8-16); BLOOD UREA NITROGEN 80 MG/DL (7-18); BUN/CREATININE RATIO 14.8 (5.4-32.0); CALCIUM 7.3 MG/DL (8.5-10.1); CHLORIDE 95 MMOL/L (99-107); CREATININE 5.41 MG/DL (0.60-1.10); GLUCOSE 109 MG/DL (70-104); PHOSPHORUS 7.6 MG/DL (2.3-4.5); POTASSIUM 4.1 MMOL/L (3.5-5.1); SODIUM 130 MMOL/L (135-145); TOTAL CARBON DIOXIDE 25.3 MMOL/L (24-32); eGFR 10 ML/MIN
[2017-09-02 06:44] LABS: INR 4.3 INR
[2017-09-02] MEDS: docusate sod 100mg capsule PO SCH (07:55)
== END 2017-09-02 08:30 | disposition hospice, inpatient (51) | DRG 314 ==
LOC: ER 11:26 → ED HOLD 14:56 → ORTHO 4S 15:50
PROVIDERS: ADMIT Internal Medicine Critical Care Medicine; ATTEND Internal Medicine Critical Care Medicine
PROC: 02HV33Z Insertion of Infusion Device into Superior Vena Cava, Percutaneous Approach (ICD-10-PCS; principal; 2017-08-30)
PROC: B548ZZA Ultrasonography of Superior Vena Cava, Guidance (ICD-10-PCS; 2017-08-30)
PROC: B5181ZA Fluoroscopy of Superior Vena Cava using Low Osmolar Contrast, Guidance (ICD-10-PCS; 2017-08-30)
PROC: 5A1D70Z Performance of Urinary Filtration, Intermittent, Less than 6 Hours Per Day (ICD-10-PCS; 2017-08-30)
DX: T80.211A Bloodstream infection due to central venous catheter, initial encounter (principal); N18.6 End stage renal disease; A41.9 Sepsis, unspecified organism; N39.0 Urinary tract infection, site not specified; E87.1 Hypo-osmolality and hyponatremia; D68.61 Antiphospholipid syndrome; I12.0 Hypertensive chronic kidney disease with stage 5 chronic kidney disease or end stage renal disease; E06.3 Autoimmune thyroiditis; E11.22 Type 2 diabetes mellitus with diabetic chronic kidney disease; E11.42 Type 2 diabetes mellitus with diabetic polyneuropathy; E11.65 Type 2 diabetes mellitus with hyperglycemia; B95.2 Enterococcus as the cause of diseases classified elsewhere; E78.5 Hyperlipidemia, unspecified; M19.90 Unspecified osteoarthritis, unspecified site; Y84.8 Other medical procedures as the cause of abnormal reaction of the patient, or of later complication, without mention of misadventure at the time of the procedure; Z16.29 Resistance to other single specified antibiotic; Z51.5 Encounter for palliative care; Z66 Do not resuscitate; Z99.2 Dependence on renal dialysis; Z88.2 Allergy status to sulfonamides; Z79.899 Other long term (current) drug therapy; Z79.01 Long term (current) use of anticoagulants; Y92.89 Other specified places as the place of occurrence of the external cause
CPT/HCPCS: 36415; 36556; 71045; 74176; 76937; 77001; 80048; 80053; 80202; 81001; 82948; 83605; 83735; 84100; 84145; 85025; 85610; 85730; 87040; 87070; 87077; 87088; 87186; 93005; 97110; 97116; 97162; 97530; 99152; 99153; 99285; A4315; A4620; A6213; A6253; A6257; A6446; A6449; A9270; C1751; C1894; G0257; J0696; J0713; J1644; J1815; J2001; J2250; J3010; J3370; J7030